=== PATIENT | female | born 1965 | race African-American/Black ===

== ENCOUNTER 2017-02-26 06:42 | Outpatient (CLI) | payer OTHER ==
--- NOTE | 2017-02-26 07:45 | Ultrasound Report ---
RIGHT UPPER QUADRANT ULTRASOUND: HISTORY: Abnormal liver function tests. Technique: Transabdominal ultrasound imaging with Doppler interrogation. FINDINGS: The liver is echogenic consistent with fatty infiltration or nonspecific parenchymal disease. No enlargement, mass or surface nodularity is identified. The gallbladder is sonolucent with no evidence of stones, polyps or wall thickening. The common duct is normal in caliber. Images of the pancreas, right kidney and aorta are within normal limits. No perihepatic ascites. IMPRESSION: Echogenic liver consistent with fatty infiltration or nonspecific parenchymal disease. No acute process.
== END 2017-02-26 06:43 | disposition home or self-care (01) ==
LOC: US 06:42
PROVIDERS: ATTEND Family Medicine Adult Medicine
DX: R94.5 Abnormal results of liver function studies (principal)
CPT/HCPCS: 76705